=== PATIENT | male | born 1995 | race Caucasian/White ===

== ENCOUNTER 2024-08-25 08:50 | Outpatient (AMB) | payer OTHER, SELFPAY ==
--- NOTE | 2024-08-25 08:52 | A.OFFPC_ITS ---
Vital Signs 08/25/24 08:53 Height 5 ft 11.26 in Weight 199 lb 2 oz BMI 27.6 BP 126/72 Blood Pressure Location Lt brachial Position Sitting Pulse 89 Pulse Source Pulse Oximeter Pulse Oximetry (%) 96 Oxygen Delivery Method Room Air Intake Visit Reasons: establish care Thread Checker Required: No Accompanied by: Spouse Allergies No Known Allergies Allergy (Verified 08/25/24 09:16) Medication List - Last Reconciled 08/25/24 by Artis Childers MD No Known Home Meds Tobacco use date assessed: 08/25/24 Dental Screening Dental Screen Date: 08/25/24 Did you have a dental visit in the last 12 months?: No Did you have a dental problem in the last 6 months where you did not have access to dental care?: No Was dental information given to patient?: No HPI establish care HPI Details Patient comes in today for his annual physical examination and to establish care - is a new patient to the practice States that he feels okay on and off low back pain and right-sided sciatica for years - not now has seen chiropractor in [facility] in the past X-rays reportedly did not show anything significant; MRI/CT showed something in between vertebra no recollection of past back injuries Recalls that he was sent for physical therapy for his lower back at one point and states that physical therapy did help a lot He denies any headaches or dizziness Denies any SOB; denies any chest pains at present but his states that he's had chest pains in the past, mostly when he feels very stressed Recalls that he had increased precordial chest pains at one point about 6 months ago when he got back home from work and was feeling upset Patient recalls that sensation as similar to a bear sitting on his chest States that the symptoms lasted for a while before gradually subsiding His states that she wanted to bring him to the ER at the time but patient refused No nausea/vomiting, no abdominal pain - relates (+) Hx of gastritis years ago when he was still living in [facility] Patient states that he never really did take any medication for his stomach and opted to take something that was more natural but he does not remember exactly what it was that he took back then Adds he's had on and off diarrhea/loose stools that occur mostly after he eats a variety of foods for years but he has never been able to narrow down or isolate any particular foods or drinks that tends to trigger his diarrhea He denies any acute urinary symptoms PFSH Medical History (Updated 08/25/24 @ 09:41 by Artis Childers MD) Gastritis Overweight (BMI 25.0-29.9) Surgical History (Updated 08/25/24 @ 09:27 by Artis Childers MD) S/P scrotal varicocelectomy Family History Other Diabetes Hypertension Thyroid cancer Social History Housing: House Patient Tobacco Use Status: Never used Tobacco e-Cigarette/Vaping Use: Never Used Second Hand Smoke Exposure: No service: No Current occupational status: employed Current occupational exposures/hazards: No Cognitive needs: No Hearing needs: No Vision needs: No Questionnaire PHQ-9 Over the last 2 weeks, how often have you been bothered by any of the following problems? 1. Little interest or pleasure in doing things: not at all 2. Feeling down, depressed, or hopeless: not at all 3. Trouble falling or staying asleep, or sleeping too much: not at all 4. Feeling tired or having little energy: not at all 5. Poor appetite or overeating: not at all 6. Feeling bad about yourself - or that you are a failure or have let yourself or your family down: not at all 7. Trouble concentrating on things, such as reading the newspaper or watching television: not at all 8. Moving or speaking so slowly that other people could have noticed. Or the opposite - being so fidgety or restless that you have been moving around a lot more than usual: not at all 9. Thoughts that you would be better off or of hurting yourself in some way: not at all Total score: 0 Depression Screening Interpretation: Negative Depression Screening Done: Yes 86059 - PHQ-9 Billing: Yes Source: Developed by Drs. Gerard Pereira, Sarah Lema, Abram Rdz and colleagues, with an educational barbara from [employer]. Thrive Questionnaire Date Thrive assessed: 08/25/24 I am a: Patient What is your living situation today?: I have a steady place to live Within the past 12 months, did the food you bought not last and you didn't have the money to get more?: Never true Within the past 12 months, did you worry whether your food would run out before you got money to buy more?: Never true Do you have trouble paying for medicines?: No Do you have trouble getting transportation to medical appointments?: No Do you have trouble paying your heating and electricity bill?: No Do you have trouble taking care of your child, family member or friend?: No Do you have trouble with day-to-day activities such as bathing, preparing meals, shopping, managing finances, etc.?: No Are you currently unemployed and looking for a job?: No Are you interested in more education?: No Please select the resources that you would like help with: None Currently or been in a relationship where the following occur: No concerns r eported THRIVE Score: 0 AUDIT C Alcohol Use Questionnaire (AUDIT-C) 1. How often do you have a drink containing alcohol?: Never 3. How often do you have six or more drinks on one occasion?: Never Total Score: 0 Score Reviewed/Action Taken: Yes HEAVEN-7 AMB Questionnaire HEAVEN-7 Date HEAVEN - 7 assessed: 08/25/24 Feeling nervous, anxious, or on edge: 0 = Not at all Not being able to stop or control worryin = Not at all Worrying too much about different things: 0 = Not at all Trouble relaxin = Not at all Being so restless that it is hard to sit still: 0 = Not at all Becoming easily annoyed or irritable: 0 = Not at all Feeling afraid as if something awful might happen: 0 = Not at all Total HEAVEN-7 score (0-4 normal; 5-9 mild; 10-14 moderate; 15-21 severe): 0 Source: Developed by Drs. Gerard Pereira, Sarah Lema, Abram Rdz and colleagues, with an educational barbara from [employer]. Review of Systems Const Denies chills, Denies difficulty sleeping, Denies fatigue, Denies fever(s), Denies headache(s), Denies malaise and Denies weakness Eyes Denies blurry vision, Denies change in vision, Denies irritation and Denies itchy eyes ENT Denies dysphagia, Denies dizziness, Denies otalgia, Denies headache(s), Denies nasal congestion, Denies neck pain, Denies odynophagia and Denies sore throat Card Denies chest pain (but reports (+) on and off chest pains when he feels stressed - see HPI), Denies rapid heart rate, Denies irregular heart rhythm, Denies palpitations and Denies dyspnea Resp Denies chest congestion, Denies cough, Denies dyspnea and Denies wheezing GI Denies abdominal pain, Denies bloating, Denies hematochezia, Denies constipation, Denies dysphagia, Denies heartburn, Reports diarrhea (mostly after eating a variety of foods ), Reports loose stools (postpradial), Denies nausea, Denies odynophagia and Denies vomiting Denies hematuria, Denies difficulty urinating, Denies dysuria, Denies urinary f requency and Denies urinary urgency Musc Reports back pain (on and off), Denies arthralgias, Denies joint swelling, Denies muscle weakness, Denies neck pain and Reports radiating pain into limb ((+) right-sided sciatica at times) Skin/Breast Denies change in pigmentation, Denies lesions, Denies rash and Denies unusual bruising Neuro Denies dizziness, Denies headache(s), Denies paresthesias and Denies weakness Endo Denies fatigue and Denies palpitations Aller/Immun Denies itchy eyes and Denies wheezing Physical exam (Primary Care) Vital Signs: Last Vital Signs Pulse 89 08/25/24 08:53 BP 126/72 08/25/24 08:53 Pulse Ox 96 08/25/24 08:53 Oxygen Delivery Method Room Air 08/25/24 08:53 BMI result Body Mass Index 27.6 Tobacco/Smoking Status: Tobacco use Status Tobacco use date assessed 08/25/24 08/25/24 08:59 Patient Tobacco Use Status Never used Tobacco 08/25/24 08:59 e-Cigarette/Vaping Use Never Used 08/25/24 08:59 PHQ-9: PHQ-9 Score PHQ-9: Total score 0 08/25/24 08:59 Depression Screening Interpretation: Negative Thrive Assessment: Date of Thrive Assessment Date Thrive assessed 08/25/24 08/25/24 08:59 Currently or been in a relationship where the following occur: No concerns reported Const General: no acute distress, alert and awake Orientation/consciousness: patient oriented x3 HENMT Head: Yes normocephalic and Yes atraumatic Ears: external ears normal, TM's normal bilaterally and EAC's normal General nose exam: No nasal discharge present Face and sinus: Yes normal facial exam and Yes sinuses nontender Teeth and gingiva: dentition normal Throat: Yes posterior oropharynx normal and Yes tonsils normal (no TP congestion) Eyes Eyelids: Yes eyelids normal Conjunctivae: conjunctivae normal Pupils: Equal, round and reactive pupils present EOM: EOMs intact bilaterally Neck Neck: Yes no lymphadenopathy and Yes supple Thyroid: Thyroid normal Resp Auscultation: clear to auscultation bilaterally, no rales and no wheezes Cardio Rate: regular rate Rhythm: regular rhythm Heart sounds: no murmurs GI Palpation (GI): Soft to palpation, nontender and No hepatosplenomegaly present Auscultation: normal bowel sounds General: Yes no CVA tenderness Back/Spine/Pelvis Back: no CVA tenderness Thoracic/Lumbar Spine: lumbar spinal tenderness (mild) Skin Lesions: no lesions Rashes: no rashes Neuro General: patient oriented x3, moves all extremities, no focal motor deficits and CN's II-XI intact bilaterally Cranial nerves: Yes Equal, round and reactive pupils present Cognition (Neuro): normal cognition Gait exam (Neuro): Normal gait present Extrem General: Yes no clubbing, cyanosis or edema Coding Level of Care Code New Pt Prev Care 18-39yr([id number] Diagnoses Annual physical exam Z00.00 Chest pain, unspecified type R07.9 Chest pain type: unspecified Postprandial diarrhea K52.9 Chronic midline low back pain with right-sided sciatica M54.41; G89.29 Chronicity: chronic Back pain laterality: midline Sciatica presence: with sciatica Sciatica laterality: sciatica of right side Overweight (BMI 25.0-29.9) E66.3 Additional Codes PHQ-9 - 24276 - PHQ-9 Billing: Yes ([id number]) Assessment & Plan Assessment & Plan (1) Annual physical exam: Code(s): Z00.00 - Encounter for general adult medical examination without abnormal findings Category: Medical Plan: Check labs (2) Chest pain: Code(s): R07.9 - Chest pain, unspecified Category: Medical Qualifiers: Chest pain type: unspecified Qualified Code(s): R07.9 - Chest pain, unspecified Plan: Will send patient for chest x-rays and EKG for further evaluation If initial tests are unrevealing, may need to consider further cardiac testing (echo and/or stress testing) for further evaluation (3) Postprandial diarrhea: Code(s): K52.9 - Noninfective gastroenteritis and colitis, unspecified Category: Medical Plan: Will send patient for some labs for further evaluation; will include screening tests for celiac disease at this time Discussed with patient also the possibility of lactose intolerance that may help explain his GI symptoms (4) Low back pain: Code(s): M54.50 - Low back pain, unspecified Category: Medical Qualifiers: Chronicity: chronic Back pain laterality: midline Sciatica presence: with sciatica Sciatica laterality: sciatica of right side Qualified Code(s): M54.41 - Lumbago with sciatica, right side; G89.29 - Other chronic pain Plan: Discussed activity and weight-lifting restrictions Will send patient for updated lumbar spine x-rays for further evaluation (5) Overweight (BMI 25.0-29.9): Code(s): E66.3 - Overweight Category: Medical Plan: Discussed diet/exercise as tolerated/lose weight Plan Follow up in 3 months Orders: Orders Complete Blood Count Auto Diff Today D64.9 - Anemia, unspecified, Z00.00 - Encounter for general adult medical examination without abnormal findings Comprehensive Elliott. Panel Fast Today E78.00 - Pure hypercholesterolemia, unspecified, Z00.00 - Encounter for general adult medical examination without abnormal findings Vitamin D 25-OH Total Today E55.9 - Vitamin D deficiency, unspecified, Z00.00 - Encounter for general adult medical examination without abnormal findings Endomysial IgA rflx Titer Today K52.9 - Noninfective gastroenteritis and colitis, unspecified XR lumbar spine 2-3V Today M54.50 - Low back pain, unspecified XR chest 2V Today R07.9 - Chest pain, unspecified ECG 12 lead EKG Today R07.9 - Chest pain, unspecified Lipid Panel Today E78.00 - Pure hypercholesterolemia, unspecified, Z00.00 - Encounter for general adult medical examination without abnormal findings TSH reflex Free T4 Today E78.00 - Pure hypercholesterolemia, unspecified, Z00.00 - Encounter for general adult medical examination without abnormal findings UA CC w/rflx Micro + Cult Today R30.0 - Dysuria, Z00.00 - Encounter for general adult medical examination without abnormal findings Transglutaminase IgA Today K52.9 - Noninfective gastroenteritis and colitis, unspecified Erythrocyte Sedimentation Rate Today K52.9 - Noninfective gastroenteritis and colitis, unspecified, M79.7 - Fibromyalgia C Reactive Protein Today K52.9 - Noninfective gastroenteritis and colitis, unspecified Vitamin B12 and Folate Today E53.8 - Deficiency of other specified B group vitamins, K52.9 - Noninfective gastroenteritis and colitis, unspecified
[2024-08-25 08:53] VITALS: BP 126/72; PULSE 89; O2SAT 96; BMI 27.6
== END 2024-08-25 09:43 | disposition home or self-care (01) ==
PROVIDERS: PCP Internal Medicine; Visit Provider Internal Medicine
DX: Z00.00 Encounter for general adult medical examination without abnormal findings (principal); R07.9 Chest pain, unspecified; K52.9 Noninfective gastroenteritis and colitis, unspecified; M54.41 Lumbago with sciatica, right side; G89.29 Other chronic pain; E66.3 Overweight

== ENCOUNTER → 2024-08-25 08:50 | Outpatient (BNVA) | payer OTHER, SELFPAY | PROVIDERS: Visit Provider Internal Medicine | DX: Z00.00 Encounter for general adult medical examination without abnormal findings (principal); R07.9 Chest pain, unspecified; K52.9 Noninfective gastroenteritis and colitis, unspecified; M54.41 Lumbago with sciatica, right side; G89.29 Other chronic pain; E78.00 Pure hypercholesterolemia, unspecified; M79.7 Fibromyalgia; Z68.27 Body mass index [BMI] 27.0-27.9, adult | CPT/HCPCS: 96127 ==

== ENCOUNTER 2025-01-28 09:21 | Outpatient (REF) | payer OTHER, SELFPAY ==
--- NOTE | ~2025-01-28 | XR_ITS ---
EXAMINATION: XR LUMBAR SPINE 2-3 VIEWS HISTORY: M54.50 - Low back pain, unspecified COMPARISON: There are no prior studies for comparison. FINDINGS: AP, lateral, and coned down views of the lumbar spine are submitted. Osseous mineralization is normal. Five nonrib-bearing lumbar vertebral bodies are identified, maintaining normal height without evidence of fracture or spondylolisthesis. There is straightening of the normal lumbar lordosis. There is mild disc space narrowing at L4-5 and L5-S1. The posterior elements are intact. The visualized paraspinal soft tissues are unremarkable. XR/XR lumbar spine 2-3V IMPRESSION: Straightening of the normal lumbar lordosis. Mild disc space narrowing at L4-5 and L5-S1. Electronically signed by: Gerard Parra MD 01/30/2025 07:23 AM [facility]
--- NOTE | ~2025-01-28 | XR_ITS ---
EXAMINATION: XR CHEST 2 VIEWS HISTORY: R07.9 - Chest pain, unspecified COMPARISON: There are no prior studies available for comparison. FINDINGS: PA and lateral views of the chest are submitted. The lungs are expanded and clear. There is no pleural effusion, pneumothorax, or pulmonary vascular congestion. The heart is normal in size. The bones are intact. XR/XR chest 2V IMPRESSION: Normal examination of the chest. Electronically signed by: Gerard Parra MD 01/30/2025 07:22 AM [facility]
[2025-01-28 09:53] LABS: MANUAL DIFF FLAG NO
[2025-01-28 10:15] LABS: Hematocrit 44.8 % (42.0-52.0); Hemoglobin 15.3 g/dl (14.0-18.0); Imm Gran Abs Auto 0.01 X10*3/uL (0.00-0.03); Imm Gran Pct Auto 0.2 % (0.0-0.4); Lymphocytes Absolute Auto 2.3 X10*3/uL (1.2-4.9); Mean Corpuscular HGB Conc 34.2 g/dl (31.0-36.0); Mean Corpuscular Hemoglobin 31.4 pg (27.0-33.0); Mean Corpuscular Volume 92.0 fL (80.0-98.0); NRBC Abs Auto 0.000 X10*3/uL (0.0-0.012); NRBC Pct Auto 0.0 /100WBC (0.0-0.2); Platelet Count 273 X10*3/uL (160-400); Red Blood Count 4.87 X10*6/uL (4.60-5.80); White Blood Count 5.9 X10*3/uL (4.8-10.8)
[2025-01-28 10:32] LABS: Appearance Urine Clear; Glucose Urine UA Negative (Negative); PH 6.5 (5.0-9.0); Specific Gravity - Urine >= 1.030 (1.005-1.025)
[2025-01-28 10:54] LABS: Erythrocyte Sedimentation Rate 2 MM/HR (0-15)
[2025-01-28 11:11] LABS: Alanine Aminotransferase 27 U/L (0-40); Albumin Level 5.0 g/dL (3.5-5.0); Alkaline Phosphatase 72 U/L (39-117); Anion Gap 10 (12-20); Aspartate Amino Transferase 21 U/L (5-37); Blood Urea Nitrogen 17 mg/dL (9-16); Calcium 9.3 mg/dL (8.4-10.2); Carbon Dioxide 26 mmol/L (22-29); Chloride 108 mmol/L (96-108); Cholesterol 225 mg/dL (<200); Estimated Glomerular Filt Rate > 60; HDL Cholesterol 39 mg/dL (>40); Potassium 4.2 mmol/L (3.3-5.1); Sodium 140 mmol/L (135-145); Total Protein 7.6 g/dL (6.5-8.0); Triglycerides 94 mg/dL (<150)
[2025-01-28 11:19] LABS: Folate 11.4 ng/mL (> or = 4.0); Vitamin B12 523 pg/mL (200-900)
== END 2025-01-28 09:22 | disposition home or self-care (01) ==
LOC: HO.XRAY 09:21
PROVIDERS: PCP Internal Medicine; Visit Provider Internal Medicine
DX: Z00.00 Encounter for general adult medical examination without abnormal findings (principal); M54.50 Low back pain, unspecified; R07.9 Chest pain, unspecified; E78.00 Pure hypercholesterolemia, unspecified; K52.9 Noninfective gastroenteritis and colitis, unspecified; D64.9 Anemia, unspecified; E55.9 Vitamin D deficiency, unspecified; R30.0 Dysuria; M79.7 Fibromyalgia; E53.8 Deficiency of other specified B group vitamins
CPT/HCPCS: 36415; 71046; 72100; 80053; 80061; 81003; 82306; 82607; 82746; 84443; 85025; 85652; 86140; 86231; 86364

== ENCOUNTER → 2025-01-28 09:55 | Outpatient (BNV) | payer OTHER, SELFPAY | PROVIDERS: PCP Internal Medicine; Visit Provider Radiology Diagnostic Radiology | DX: M48.061 Spinal stenosis, lumbar region without neurogenic claudication (principal); M40.56 Lordosis, unspecified, lumbar region; R07.9 Chest pain, unspecified | CPT/HCPCS: 71046; 72100 ==

== ENCOUNTER → 2025-02-01 11:00 | Outpatient (REF) | payer OTHER, SELFPAY ==
--- NOTE | 2025-02-01 11:03 | ECG_ITS ---
Test Reason : CP Blood Pressure : */* mmHG Vent. Rate : 84 BPM Atrial Rate : 84 BPM P-R Int : 142 ms QRS Dur : 98 ms QT Int : 368 ms P-R-T Axes : 54 62 30 degrees QTcB Int : 434 ms Normal sinus rhythm Nonspecific T wave abnormality Abnormal ECG No previous ECGs available Referred By: Artis Childers Electronically Signed By: ALMA NELSON MD
== END ==
LOC: HO.CARD 11:00
PROVIDERS: PCP Internal Medicine; Visit Provider Internal Medicine
DX: R07.9 Chest pain, unspecified (principal)
CPT/HCPCS: 93005

== ENCOUNTER → 2025-02-01 11:03 | Outpatient (BNV) | payer OTHER, SELFPAY | PROVIDERS: PCP Internal Medicine; Visit Provider Internal Medicine Cardiovascular Disease | DX: R07.9 Chest pain, unspecified (principal) | CPT/HCPCS: 93010 ==

== ENCOUNTER 2025-02-14 15:24 | Outpatient (AMB) | payer OTHER, SELFPAY ==
--- NOTE | 2025-02-14 15:45 | A.OFFPC_ITS ---
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 Accompanied by: Spouse Allergies No Known Allergies Allergy (Verified 02/19/25 19:10) Medication List - Last Reconciled 02/19/25 by Artis Childers MD No Known Home Meds Tobacco use date assessed: 02/14/25 Dental Screening Dental Screen Date: 02/14/25 Did you have a dental visit in the last 12 months?: Yes Did you have a dental problem in the last 6 months where you did not have access to dental care?: No Was dental information given to patient?: Patient has dentist HPI 3mth f/u, resched HPI Details - The patient is a 29 year old male pres enting for his follow up visit and for review of his recent laboratory results - He reports intermittent chest pains wh ich occur when he feels stressed, such as from his current project of building a house. - A prior cardiac workup with a heart mo nitor was normal. - For years, he has experienced frequent diarrhea and stomach pains after eating, particularly when consuming a mix of different foods. - The pain is sometimes a cramping or st abbing sensation, and he sometimes feels like his stomach will explode . - Previous testing for gluten sensitivit y was negative. - An informal ultrasound performed by dalila s about six months ago ( is an mold technician) showed a fatty liver but no gallstones. - He also has chronic back pain, and pas t chest x-ray incidentally revealed mild arthritis in his back/spine. - He denies any headaches or dizziness - Denies any exertional chest pains or i ncreased SOB - He reports no nausea or vomiting even when he is experiencing abdominal cramping pain and having his post-prandial diarrhea - Recent blood tests revealed a total ch olesterol of 225 mg/dL and an LDL of 168 mg/dL. - He has a family history of very high c holesterol. - His blood sugar is borderline, and his mother was recently diagnosed with type 2 diabetes. [facility] Medical History (Updated 02/19/25 @ 22:49 by Artis Childers MD) Vitamin D deficiency Pure hypercholesterolemia Gastritis Overweight (BMI 25.0-29.9) Surgical History S/P scrotal varicocelectomy Family History Other Diabetes Hypertension Thyroid cancer Social History Housing: House Patient Tobacco Use Status: Never used Tobacco e-Cigarette/Vaping Use: Never Used Second Hand Smoke Exposure: No service: No Current occupational status: employed Current occupational exposures/hazards: No Cognitive needs: No Hearing needs: No Vision needs: No Questionnaire Thrive Questionnaire Date Thrive assessed: 08/25/24 I am a: Patient What is your living situation today?: I have a steady place to live Within the past 12 months, did the food you bought not last and you didn't have the money to get more?: Never true Within the past 12 months, did you worry whether your food would run out before you got money to buy more?: Never true Do you have trouble paying for medicines?: No Do you have trouble getting transportation to medical appointments?: No Do you have trouble paying your heating and electricity bill?: No Do you have trouble taking care of your child, family member or friend?: No Do you have trouble with day-to-day activities such as bathing, preparing meals, shopping, managing finances, etc.?: No Are you currently unemployed and looking for a job?: No Are you interested in more education?: No Currently or been in a relationship where the following occur: No concerns reported THRIVE Score: 0 HEAVEN-7 AMB Questionnaire HEAVEN-7 Date HEAVEN - 7 assessed: 08/25/24 Source: Developed by Drs. Gerard Pereira, Sarah Lema, Abram Rdz and colleagues, with an educational barbara from [employer]. Review of Systems Const Denies chills, Reports difficulty sleeping, Denies fatigue, Denies fever(s) and Denies headache(s) ENT Denies dysphagia, Denies dizziness, Denies otalgia, Denies headache(s), Denies neck pain, Denies odynophagia and Denies sore throat Card Reports chest pain (reports (+) on and off chest pains when he feels stressed), Denies chest pain with activity, Denies rapid heart rate, Denies irregular heart rhythm, Denies palpitations and Denies dyspnea Resp Denies chest congestion, Denies cough, Denies dyspnea and Denies wheezing GI Denies abdominal pain, Denies hematochezia, Denies constipation, Denies dysphagia, Denies heartburn, Reports diarrhea (mostly after eating a variety of foods ), Reports loose stools (postprandial), Denies nausea, Denies odynophagia and Denies vomiting Denies difficulty urinating, Denies dysuria and Denies urinary frequency Musc Reports back pain (on and off), Denies arthralgias, Denies neck pain and Reports radiating pain into limb ((+) right-sided sciatica at times) Skin/Breast Denies rash Neuro Denies dizziness, Denies headache(s) and Denies paresthesias Endo Denies fatigue and Denies palpitations Aller/Immun Denies wheezing Physical exam (Primary Care) Vital Signs: Last Vital Signs Pulse 99 02/14/25 15:46 BP 118/72 02/14/25 15:46 Pulse Ox 96 02/14/25 15:46 Oxygen Delivery Method Room Air 02/14/25 15:46 BMI result Body Mass Index 28.8 Tobacco/Smoking Status: Tobacco use Status Tobacco use date assessed 02/14/25 02/14/25 15:53 Patient Tobacco Use Status Never used Tobacco 02/14/25 15:45 e-Cigarette/Vaping Use Never Used 02/14/25 15:45 Thrive Assessment: Date of Thrive Assessment Date Thrive assessed 08/25/24 02/14/25 15:45 Currently or been in a relationship where the following occur: No concerns reported Const General: no acute distress and alert HENMT Ears: TM's normal bilaterally and EAC's normal Throat: Yes posterior oropharynx normal and Yes tonsils normal (no TP congestio n) Neck Neck: Yes no lymphadenopathy and Yes supple Thyroid: Thyroid normal Resp Auscultation: clear to auscultation bilaterally, no rales and no wheezes Cardio Rate: regular rate Rhythm: regular rhythm Heart sounds: no murmurs GI Palpation (GI): Soft to palpation and nontender Auscultation: normal bowel sounds General: Yes no CVA tenderness Back/Spine/Pelvis Back: no CVA tenderness Thoracic/Lumbar Spine: lumbar spinal tenderness (mild) Skin Rashes: no rashes Extrem General: Yes no clubbing, cyanosis or edema Results Reviewed Results Reviewed: Laboratory Tests 01/28/25 01/28/25 09:38 09:50 WBC 5.9 Hgb 15.3 Hct 44.8 Plt Count 273 Sodium 140 Potassium 4.2 Creatinine 0.98 Estimated GFR > 60 Fasting Glucose 104 H Calcium 9.3 AST 21 ALT 27 Triglycerides 94 Cholesterol 225 H LDL Cholesterol, Calc 168 H HDL Cholesterol 39 L Vitamin B12 523 25-OH Vitamin D Total 19.7 L TSH 1.01 Urine pH 6.5 Ur Specific Bruno >= 1.030 H Urine Protein Negative Urine Glucose (UA) Negative Urine Blood Negative Urine Nitrite Negative Ur Leukocyte Esterase Negative Coding Level of Care Code Est Pt Level 4 (93276) Diagnoses Pure hypercholesterolemia E78.00 Impaired fasting glucose R73.01 Vitamin D deficiency E55.9 Postprandial diarrhea K52.9 Chronic midline low back pain with right-sided sciatica M54.41; G89.29 Chronicity: chronic Back pain laterality: midline Sciatica presence: with sciatica Sciatica laterality: sciatica of right side Chest pain, unspecified type R07.9 Chest pain type: unspecified Overweight (BMI 25.0-29.9) E66.3 Assessment & Plan Assessment & Plan (1) Pure hypercholesterolemia: Code(s): E78.00 - Pure hypercholesterolemia, unspecified Category: Medical Plan: Results of his labs done a couple of weeks ago reviewed and discussed with patient - he is advised that his cholesterol level is high (LDL cholesterol at 168 mg/dl) Discussed low cholesterol diet - advised that due to his young age, he should try working on lowering his cholesterol level through diet modification rather than taking medication immediately Low cholesterol diet information provided to patient Will recheck his labs and fasting lipids in 6 months for follow up (2) Impaired fasting glucose: Code(s): R73.01 - Impaired fasting glucose Category: Medical Plan: Have also advised patient that his fasting glucose is slightly higher than normal on his recent labs Discussed low calorie/low carb diet Will recheck his fasting glucose in 6 months for follow up; will also check his HgbA1c in 6 months for further evaluation (3) Vitamin D deficiency: Code(s): E55.9 - Vitamin D deficiency, unspecified Category: Medical Plan: His Vitamin D level was also low on his recent labs Will have him start taking OTC Vitamin D3 2000 units QD (4) Postprandial diarrhea: Code(s): K52.9 - Noninfective gastroenteritis and colitis, unspecified Category: Medical Plan: Have discussed with patient and his that his recurrent postprandial diarrhea and abdominal pain are likely stress-induced/due to irritable bowel syndrome His states that she performed an informal abdominal ultrasound on him on her own about 6 months ago to try to see what was going on with his abdominal complaints and the sonogram showed only (+) fatty liver changes and no gallstone s Have recommended a trial of dietary modifications for now to see if his symptoms will improve and if his symptoms persist despite dietary changes, then a referral to a hotel staff member will be considered for further evaluation in the future (5) Low back pain: Code(s): M54.50 - Low back pain, unspecified Category: Medical Qualifiers: Chronicity: chronic Back pain laterality: midline Sciatica presence: with sciatica Sciatica laterality: sciatica of right side Qualified Code(s): M54.41 - Lumbago with sciatica, right side; G89.29 - Other chronic pain Plan: Have advised patient that his lumbar spine x-rays done a couple of weeks ago on 01/28/2025 revealed (+) straightening of the normal lumbar lordosis, with mild disc space narrowing seen at L4-5 and L5-S1 Discussed activity and weight-lifting restrictions/modifications to avoid further aggravating his lumbar spine changes in the future Advised that he can just take some OTC Tylenol or Ibuprofen or OTC muscle pain patches like Salonpas, Aspercreme or Bengay PRN for symptomatic relief (6) Chest pain: Code(s): R07.9 - Chest pain, unspecified Category: Medical Qualifiers: Chest pain type: unspecified Qualified Code(s): R07.9 - Chest pain, unspecified Plan: His EKG and chest x-rays done a couple of weeks ago both came out normal; chest pains are currently non-reproducible on exam today Discussed that his recurrent chest pains are most likely due to stress/anxiety and managing and treating his anxiety should help address these but if his chest pains persist or progress, then we can consider sending him for stress testing f or further evaluation (7) Overweight (BMI 25.0-29.9): Code(s): E66.3 - Overweight Category: Medical Plan: Reinforced diet/exercise as tolerated/lose weight Plan Follow up in 6 months Orders: Orders Comprehensive [place]. Panel Fast 6 Months E78.00 - Pure hypercholesterolemia, unspecified Lipid Panel 6 Months E78.00 - Pure hypercholesterolemia, unspecified Vitamin D 25-OH Total 6 Months E55.9 - Vitamin D deficiency, unspecified Hemoglobin A1c 6 Months R73.01 - Impaired fasting glucose UA CC w/rflx Micro + Cult 6 Months R30.0 - Dysuria
[2025-02-14 15:46] VITALS: BP 118/72; PULSE 99; O2SAT 96; BMI 28.8
== END 2025-02-14 16:21 | disposition home or self-care (01) ==
LOC: HO.HMCH 15:25
PROVIDERS: PCP Internal Medicine; Visit Provider Internal Medicine
DX: E78.00 Pure hypercholesterolemia, unspecified (principal); R73.01 Impaired fasting glucose; E55.9 Vitamin D deficiency, unspecified; K52.9 Noninfective gastroenteritis and colitis, unspecified; M54.41 Lumbago with sciatica, right side; G89.29 Other chronic pain; R07.9 Chest pain, unspecified; E66.3 Overweight